=== PATIENT | female | born 2000 | race African-American/Black ===

== ENCOUNTER 2019-01-15 14:14 | Emergency (ER) | payer MEDICAID ==
[~2019-01-15] VITALS: Ht 165.1 cm; Wt 49.0 kg
[~2019-01-15 14:14] MED LIST: DEXAMETHASONE OP; NEOMYC-POLYM-DEX5 ML OP; NEOMYCIN OP; NKM; PERMETHRIN59 ML TP; POLYMYXIN B OP; [UNRECOGNIZED DRUG - OTHER] LEFT EYE
--- NOTE | 2019-01-15 14:33 | NUR ---
ED Nurse Note: patient walked into ED from home patient reports that she is 4-5 weeks . patient reports seeing blood spotting/clots last night. patient describes it was a size of her pinky finger nail, and the color was light pink. patient is not actively bleeding, patient voided and the urine color is bright yellow. patient is a/o x4, ambulatory steady gait.
--- NOTE | 2019-01-15 14:47 | Emergency Room Report ---
History of Present Illness General Chief Complaint: Complications Source: Patient Present Illness HPI 18-year-old female with no significant past medical history, 5 weeks , here complaining of clotting 1 day. Patient had her last OB visits 4 days ago and everything was within normal limits. Patient reports that she started doing heavy lifting yesterday and started noticing blood clots right after. Denies any abdominal pain, SOB, fever or chills, nausea or vomiting, syncope. Patient has no active bleeding and denies any other bleeding after the one episode of clotting. Denies blood in her urine denies dysuria. Patient is anxious that she has had a miscarriage. She is . Denies smoking, taking any new medications, chest pain, palpitation, and all other associated symptoms Allergies: Coded Allergies: No Known Allergies (Unverified , 08/16/12) Patient History Past Medical History: see triage record Past Surgical History: unable to obtain Pertinent Family History: none Now: Yes - 4-5 WEEKS : 1 Immunizations: UTD Reviewed Nursing Documentation: PMH: Agreed; PSxH: Agreed Nursing Documentation-PMH Past Medical History: No History, Except For Hx Asthma: Yes Review of Systems All Other Systems: negative except mentioned in HPI Physical Exam Vital Signs Date Time Temp Pulse Resp B/P (MAP) Pulse Ox O2 Delivery O2 Flow Rate FiO2 01/15/19 14:28 98.1 91 23 114/70 98 Room Air Sp02 EP Interpretation: reviewed, normal General Appearance: normal inspection, well appearing, no apparent distress Head: normocephalic, atraumatic Eyes: bilateral eye normal inspection, bilateral eye PERRL ENT: normal ENT inspection Neck: normal inspection, full range of motion Respiratory: normal inspection, chest non-tender, lungs clear, no rhonchi, no wheezing Cardiovascular #1: normal inspection, regular rate, rhythm, no edema, no murmur Gastrointestinal: normal inspection, non tender, soft, no mass, no organomegaly , no guarding, no rebound Rectal: deferred Genitourinary: no CVA tenderness Musculoskeletal: normal inspection, back normal Neurologic: normal inspection, alert, oriented x3 Skin: normal color, no rash, warm/dry Lymphatic: normal inspection, no adenopathy Medical Decision Making PA Attestation all diagnoses and treatment plans were reviewed and discussed with my supervising physician Dr. Kirby Diagnostic Impression: Primary Impression: Bleeding in early ER Course 18-year-old female with no significant past medical history, 5 weeks , here complaining of clotting 1 day. Patient had her last OB visits 4 days ago and everything was within normal limits. Patient reports that she started doing heavy lifting yesterday and started noticing blood clots right after. Denies any abdominal pain, SOB, fever or chills, nausea or vomiting, syncope. Patient has no active bleeding and denies any other bleeding after the one episode of clotting. Denies blood in her urine denies dysuria. Patient is anxious that she has had a miscarriage. She is . Denies smoking, taking any new medications, chest pain, palpitation, and all other associated symptoms Ddx considered but are not limited to threatened , complete , ectopic Vital signs: are WNL, pt. is afebrile H&PE are most consistent with bleeding in eary ORDERS: OB ultrasound, cross and type and Rh, CBC, beta hCG quantitative, urine . ED INTERVENTIONS: None required at this time. DISCHARGE: At this time pt. is stable for d/c to home. Will provide printed patient care instructions, and any necessary prescriptions. Care plan and follow up instructions have been discussed with the patient prior to discharge. after I saw the patient that she is about to be discharged to ask for STD check as she has been having a yellow discharge. I told her that I could give the treatment empirically for possible chlamydia and gonorrhea however since she is having clotting in it is better to be checked with the primary care provider in 48 hours for proper treatment and testing. [facility] [place] CT/MRI/US Diagnostic Results CT/MRI/US Diagnostic Results : Imaging Test Ordered: OB US Impression FINDINGS: Gestation: Single intrauterine gestational sac. No pole identified. Gestational sac measures 0.92 x 0.71 x 0.61 cm with a mean sac diameter of 0.74 cm. Small yolk sac identified. Placenta/amniotic fluid: Cannot be adequately evaluated due to the early gestational age. Uterus/cervix: The uterus measures 8.5 x 4.5 x 4.5 cm. No myometrial mass. Ovaries: Right ovary measures 3.0 x 2.2 x 1.4 cm. Left ovary measures 3.3 x 1.5 x 1.2 cm. No mass. Free fluid: No free fluid. IMPRESSION: Single intrauterine gestational sac. No pole identified. This is likely related to early status. Recommend follow-up sonography as clinically indicated. Last Vital Signs Date Time Temp Pulse Resp B/P (MAP) Pulse Ox O2 Delivery O2 Flow Rate FiO2 01/15/19 14:28 98.1 91 23 114/70 98 Room Air Disposition: HOME, SELF-CARE Condition: Stable Referrals: NOT CHOSEN IPA/MD,REFERRING (PCP) Patient Instructions: Vaginal Bleeding During , First Trimester Additional Instructions: see her primary doctor and [employer] [facility] in 24-48 hours for repeat beta hCG levels and ultrasound also have your [employer] test U for all possible sexually transmitted diseases and needed to be treated treatment to be withhold today for possible chlamydia and gonorrhea as you had a bleeding episode due to . We want to minimize the risks of having a complete even the azithromycin as treatment for chlamydia and gonorrhea is safety during without complications. Chris Rosenthal Jan 15, 2019 14:46
--- NOTE | 2019-01-15 14:56 | NUR ---
ED Nurse Note: blood, urine sent down.
[2019-01-15 15:12] LABS: APPEARANCE,URINE CLEAR; BILIRUBIN, URINE NEGATIVE (NEGATIVE); GLUCOSE, URINE (UA) NEGATIVE (NEGATIVE); KETONES,URINE NEGATIVE (NEGATIVE); LEUKOCYTE ESTERASE ,URINE 3+ (NEGATIVE); NITRITE,URINE NEGATIVE (NEGATIVE); PH,URINE 8 (4.5-8.0); PROTEIN,URINE NEGATIVE (NEGATIVE); UROBILINOGEN,URINE 1 MG/DL (0.0-1.0)
[2019-01-15 15:18] LABS: BASOPHILS % (AUTO) 0.8 % (0.0-2.0); EOSINOPHILS % (AUTO) 0.6 % (0.0-3.0); HEMATOCRIT 43.8 % (37.0-47.0); HEMOGLOBIN 15.1 G/DL (12.0-16.0); LYMPHOCYTES % (AUTO) 19.2 % (20.0-45.0); MEAN CORPUSCULAR VOLUME 81 FL (80-99); MONOCYTES % (AUTO) 8.5 % (1.0-10.0); NEUTROPHILS % (AUTO) 70.9 % (45.0-75.0); PLATELET COUNT 223 K/UL (150-450); RED BLOOD COUNT 5.41 M/UL (4.20-5.40); RED CELL DISTRIBUTION WIDTH 12.2 % (11.6-14.8); WHITE BLOOD COUNT 12.3 K/UL (4.8-10.8)
[2019-01-15 15:22] LABS: COLOR,URINE YELLOW
--- NOTE | 2019-01-15 15:30 | NUR ---
ED Nurse Note: patient went down for US
--- NOTE | 2019-01-15 16:14 | Diagnostic Imaging Report ---
EXAM: US First Trimester, Transabdominal US , Transvaginal CLINICAL HISTORY: Patient with positive test, presenting with vaginal spotting/bleeding 2 days. TECHNIQUE: Real-time transabdominal and transvaginal obstetrical ultrasound of the maternal pelvis and a first trimester with image documentation. Transvaginal imaging was used for better evaluation of the fetus and adnexa. COMPARISON: No relevant prior studies available. FINDINGS: Gestation: Single intrauterine gestational sac. No pole identified. Gestational sac measures 0.92 x 0.71 x 0.61 cm with a mean sac diameter of 0.74 cm. Small yolk sac identified. Placenta/amniotic fluid: Cannot be adequately evaluated due to the early gestational age. Uterus/cervix: The uterus measures 8.5 x 4.5 x 4.5 cm. No myometrial mass. Ovaries: Right ovary measures 3.0 x 2.2 x 1.4 cm. Left ovary measures 3.3 x 1.5 x 1.2 cm. No mass. Free fluid: No free fluid. IMPRESSION: Single intrauterine gestational sac. No pole identified. This is likely related to early status. Recommend follow-up sonography as clinically indicated.
[2019-01-15 16:31] VITALS: BP 112/75
--- NOTE | 2019-01-15 16:32 | NUR ---
ER DISCHARGE NOTE: Patient is cleared to be discharged per ERPA, pt is aox4, on room air, with stable vital signs. pt was given dc instructions, pt was able to verbalize understanding, pt id band removed pt is able to ambulate with steady gait. pt took all belongings.
== END 2019-01-15 16:33 | disposition home or self-care (01) ==
LOC: EMR 14:40
DX: O20.9 Hemorrhage in early pregnancy, unspecified (principal); Z3A.01 Less than 8 weeks gestation of pregnancy
CPT/HCPCS: 36415; 76801; 81001; 81025; 84702; 85025; 86850; 86900; 86901; 99284